=== PATIENT | female | born 2000 | race African-American/Black ===

== ENCOUNTER 2021-02-28 15:06 | Outpatient (CLI) | payer MEDICAID ==
[2021-02-28] MEDS ORDERED: LACTATED RINGERS 1,000 ML IV SCH (15:15)
--- NOTE | 2021-02-28 17:11 | Ultrasound Report ---
ULTRASOUND OBSTETRIC LIMITED INDICATION / CLINICAL INFORMATION: Evaluate well-being. Pelvic pain. COMPARISON: None available. FINDINGS: AMNIOTIC FLUID INDEX (cm) = Not measured. Amniotic fluid volume is subjectively normal. PRESENTATION: Breech. HEART RATE (beats per minute): 145 ADDITIONAL FINDINGS: The placenta is located anteriorly and is unremarkable as visualized. The cervic al length measures 3.4 cm. IMPRESSION: Single live intrauterine as above without acute abnormalities. Signer Name: Edgard Springer MD Signed: 02/28/2021 5:07 PM Workstation Name: [id number]
[2021-02-28 17:36] VITALS: BP 91/51
[2021-02-28] MEDS ORDERED: ACETAMINOPHEN 325 MG TAB PO ONE (17:56)
== END 2021-02-28 18:15 | disposition home or self-care (01) ==
LOC: TRG 15:06 → APU 15:07 → TRG 18:15
PROVIDERS: ATTEND Obstetrics & Gynecology
DX: O21.2 Late vomiting of pregnancy (principal); O26.892 Other specified pregnancy related conditions, second trimester; R10.2 Pelvic and perineal pain; O47.02 False labor before 37 completed weeks of gestation, second trimester; Z3A.23 23 weeks gestation of pregnancy
CPT/HCPCS: 59025; 76815; 76817; 96360; 96361; J7120

== ENCOUNTER 2021-05-19 09:47 | Outpatient (CLI) | payer MEDICAID ==
[2021-05-19 12:09] VITALS: BP 121/79
[2021-05-19] MEDS ORDERED: LACTATED RINGERS 1,000 ML IV ONE (12:30)
[2021-05-19 12:41] LABS: Bacteria,Urine 1+ /HPF (Negative); Bilirubin,Urine NEG (Negative); Blood,Urine NEG (Negative); Color,Urine Yellow (Yellow); Mucus,Urine FEW /HPF; Protein,Urine <15 mg/dL mg/dL (Negative); Urobilinogen,Urine < 2.0 mg/dL (<2.0)
[2021-05-19] MEDS ORDERED: ONDANSETRON 4 MG/2 ML INJ IV PRN (13:30)
[2021-05-19] MEDS ORDERED: FAMOTIDINE 20 MG/2 ML INJ IV SCH (13:30)
[2021-05-19 14:29] LABS: Hematocrit 36.6 % (30.3-42.9); Hemoglobin 12.8 gm/dl (10.1-14.3); Mean Corpuscular HGB Conc 35 % (30-34); Mean Corpuscular Volume 88 fl (79-97); Platelet Count 247 K/mm3 (140-440); Red Blood Count 4.14 M/mm3 (3.65-5.03); Red Cell Distribution Width 13.1 % (13.2-15.2)
[2021-05-19 14:43] LABS: Alanine Aminotransferase 20 units/L (7-56); Albumin 3.5 g/dL (3.9-5); Blood Urea Nitrogen 4 mg/dL (7-17); Calcium 9.1 mg/dL (8.4-10.2); Hemolysis Index 58
[2021-05-19 14:45] LABS: BUN/Creatinine Ratio 13
[2021-05-19 14:48] LABS: Basophils % (Auto) 0.4 % (0.0-1.8); Eosinophils # (Auto) 0.1 K/mm3 (0.0-0.4); Eosinophils % (Auto) 0.7 % (0.0-4.3); Lymphocytes # (Auto) 1.6 K/mm3 (1.2-5.4); Lymphocytes % (Auto) 19.3 % (13.4-35.0); Monocytes # (Auto) 0.7 K/mm3 (0.0-0.8); Monocytes % (Auto) 8.3 % (0.0-7.3)
[2021-05-19] MEDS ORDERED: cefTRIAXone/NS 1 GM/50 ML 1 GM/50 ML BAG IV ONE (17:00)
== END 2021-05-19 17:09 | disposition home or self-care (01) ==
LOC: TRG 09:47 → APU 09:49 → TRG 09:49 → APU 10:15 → TRG 17:09
DX: O21.2 Late vomiting of pregnancy (principal); Z3A.35 35 weeks gestation of pregnancy
CPT/HCPCS: 36415; 59025; 80053; 81001; 82150; 83615; 83690; 85007; 85025; 87086; 96361; 96365; 96366; 96368; J2405; J7120; 96360

== ENCOUNTER 2021-06-09 07:40 | Inpatient (IN) | payer MEDICAID ==
[2021-06-09] MEDS ORDERED: OXYTOCIN DRIP 30 UNITS/500 ML BAG IV SCH ×2 (09:00)
[2021-06-09] MEDS ORDERED: ePHEDrine SULFATE 50 MG/1 ML INJ IV PRN ×2 (09:30→12:05)
[2021-06-09] MEDS ORDERED: DINOPROSTONE 10 MG VAG SUPP VG SCH (09:30)
[2021-06-09] MEDS ORDERED: LIDOCAINE (2%) 20 MG/1 ML VIAL 20 ML MDV INFILTRATI SCH (09:30)
[2021-06-09] MEDS ORDERED: CARBOPROST TROMETHAMINE 250 MCG/1 ML INJ IM PRN (09:30)
[2021-06-09] MEDS ORDERED: BUTORPHANOL 2 MG/1 ML INJ IV PRN ×2 (09:30)
[2021-06-09] MEDS ORDERED: fentaNYL 100 MCG/2 ML INJ IV PRN (09:30)
[2021-06-09] MEDS ORDERED: OXYTOCIN 10 UNIT/1 ML INJ IM PRN (09:30)
[2021-06-09] MEDS ORDERED: NalbUPHINE 10 MG/1 ML INJ IV PRN (09:30)
[2021-06-09] MEDS ORDERED: LOPERAMIDE 2 MG CAP PO PRN (09:30)
[2021-06-09] MEDS ORDERED: ACETAMINOPHEN 325 MG TAB PO PRN (09:30)
[2021-06-09] MEDS ORDERED: METHYLERGONOVINE MALEATE 0.2 MG/ML VIAL IM PRN (09:30)
[2021-06-09] MEDS ORDERED: ONDANSETRON 4 MG/2 ML INJ IV PRN (10:00)
[2021-06-09] MEDS ORDERED: TERBUTALINE 1 MG/1 ML INJ SUB-Q PRN (10:00)
[2021-06-09] MEDS ORDERED: miSOPROStol 200 MCG TAB PR PRN (10:00)
[2021-06-09] MEDS ORDERED: MINERAL OIL 30 ML ORAL LIQD PO PRN (10:00)
[2021-06-09 10:15] LABS: Hematocrit 37.4 % (30.3-42.9); Hemoglobin 12.8 gm/dl (10.1-14.3); Mean Corpuscular HGB Conc 34 % (30-34); Mean Corpuscular Volume 89 fl (79-97); Platelet Count 226 K/mm3 (140-440); Red Blood Count 4.23 M/mm3 (3.65-5.03); Red Cell Distribution Width 13.8 % (13.2-15.2)
[2021-06-09] MEDS: LACTATED RINGERS 1,000 ML IV SCH ×2 (10:44→18:59)
[2021-06-09] MEDS ORDERED: NALOXONE 2 MG/2 ML INJ IV PRN (12:05)
--- NOTE | 2021-06-09 12:06 | Anesthesia Day of Surgery ---
Anesthesia Day of Surgery - Day of Surgery Patient Examined: Yes Patient H&P Reviewed: Yes
--- NOTE | 2021-06-09 12:07 | Anesthesia Consultation ---
Anesthesia Consult and Med Hx Date of service: 06/09/21 - Airway Anesthetic Teeth Evaluation: Good ROM Head & Neck: Adequate Mental/Hyoid Distance: Adequate Mallampati Class: Class II Intubation Access Assessment: Good - Pre-Operative Health Status ASA Pre-Surgery Classification: ASA2 Proposed Anesthetic Plan: Epidural (GA if needed) - Pulmonary Hx Asthma: No - Cardiovascular System Hx Hypertension: No - Central Nervous System Hx Seizures: No Hx Psychiatric Problems: No - Endocrine Hx Renal Disease: No Hx Liver Disease: Yes (Hep B 2019) Hx Hypothyroidism: No Hx Hyperthyroidism: No - Hematic Hx Anemia: No Hx Sickle Cell Disease: No - Other Systems Hx Alcohol Use: No
--- NOTE | 2021-06-09 12:41 | History and Physical Report ---
History of Present Illness Date of examination: 06/09/21 Date of admission: 06/09/21 08:00 Chief complaint: Contractions History of present illness: 20 year old female complains of contractions. Denies LOF or VB. Patient received care at [facility] and records are available. LMP 07/21/2020. EDC 06/21/2021. significant for the following: gestational diabetes (managed on Glyburide 2.5 mg po BID); positive hepatitis B surface antigen (patient has known history of hepatitis B prior to )--patient had ID referral. labs are as follows: O+, antibody screen negative, rubella immune, hepatitis B surface antigen positive, RPR nonreactive, HIV negative, gonorrhea negative, chlamydia negative, trichomonas negative, hemoglobin electrophoresis AA, varicella immune, HSV 2 negative, NIPS low risk, OSB negative, elevated 1 hour sugar test and abnormal 3 hour OGTT, GBS negative. 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 denies: chlamydia, gonorrhea, hepatitis C, herpes, HIV, syphilis, trichomonas Family/Genetic History: none Social history: lives with family, full code. denies: smoking, alcohol abuse, prescription drug abuse, IV drug use - Obstetrical History Expected Date of Delivery: 06/21/21 Actual Gestation: 38 Week(s) 2 Day(s) : 1 Para: 0 Hx # Term Pregnancies: 0 Number of Pregnancies: 0 Spontaneous Abortions: 0 Induced : 0 Number of Living Children: 0 Medications and Allergies Allergies Allergy/AdvReac Type Severity Reaction Status Date / Time No Known Allergies Allergy Verified 02/28/21 15:13 Active Meds: Active Medications Acetaminophen (Acetaminophen 325 Mg Tab) 650 mg PO Q4H PRN PRN Reason: Pain, Mild (1-3) Butorphanol Tartrate (Butorphanol 2 Mg/1 Ml Inj) 1 mg IV Q2H PRN PRN Reason: Pain, Moderate(4-6) LABOR PAIN Butorphanol Tartrate (Butorphanol 2 Mg/1 Ml Inj) 2 mg IV Q2H PRN PRN Reason: Pain , Severe (7-10) Carboprost Tromethamine (Carboprost Tromethamine 250 Mcg/1 Ml Inj) 250 mcg IM ONCE PRN PRN Reason: Uterine Bleeding Dinoprostone (Dinoprostone 10 Mg Vag Supp) 10 mg VG ONCE CECILIA Stop: 06/10/21 09:29 Ephedrine Sulfate (Ephedrine Sulfate 50 Mg/1 Ml Inj) 10 mg IV Q2M PRN PRN Reason: Hypotension Fentanyl (Fentanyl 100 Mcg/2 Ml Inj) 100 mcg IV Q2H PRN PRN Reason: Pain,Severe (7-10) LABOR PAIN Oxytocin/Sodium Chloride (Pitocin/Ns 30 Unit/500ml) 30 units in 500 mls @ 2 mls/hr IV TITR CECILIA; Protocol Last Admin: 06/09/21 10:43 Dose: 2 mls/hr, 2 mls/hr Documented by: Lactated Ringer's (Lactated Ringers) 1,000 mls @ 125 mls/hr IV DIRECT CECILIA Last Admin: 06/09/21 10:44 Dose: 125 mls/hr Documented by: Oxytocin/Sodium Chloride (Pitocin/Ns 30 Unit/500ml) 30 units in 500 mls @ 40 mls/hr IV TITR CECILIA; Protocol Fentanyl/Bupivacaine/Sodium Chlor (Fentanyl-Bupiv 2 Mcg/Ml-0.125%) 200 mcg in 100 mls @ 12 mls/hr EPIDURAL TITR CECILIA; Protocol Lidocaine (Lidocaine (2%) 20 Mg/1 Ml Vial 20 Ml Mdv) 20 ml INFILTRATI ONCE CECILIA Stop: 06/10/21 09:29 Loperamide HCl (Loperamide 2 Mg Cap) 2 mg PO ONCE PRN PRN Reason: give with Hemabate Methylergonovine Maleate (Methylergonovine Maleate 0.2 Mg/Ml Vial) 0.2 mg IM ONCE PRN PRN Reason: Uterine Bleeding Mineral Oil (Mineral Oil 30 Ml Oral Liqd) 30 ml PO QHS PRN PRN Reason: Constipation Misoprostol (Misoprostol 200 Mcg Tab) 800 mcg RI ONCE PRN PRN Reason: Uterine Bleeding Nalbuphine HCl (Nalbuphine 10 Mg/1 Ml Inj) 10 mg IV Q2H PRN PRN Reason: Pain, Moderate (4-6) Naloxone HCl (Naloxone 2 Mg/2 Ml Inj) 0.2 mg IV Q5M PRN PRN Reason: Respiratory sedation Ondansetron HCl (Ondansetron 4 Mg/2 Ml Inj) 4 mg IV Q8H PRN PRN Reason: Nausea And Vomiting Oxytocin (Oxytocin 10 Unit/1 Ml Inj) 10 unit IM ONCE PRN PRN Reason: Uterine Bleeding Terbutaline Sulfate (Terbutaline 1 Mg/1 Ml Inj) 0.25 mg SUB-Q ONCE PRN PRN Reason: Hyperstimulation/Hypertonicity Review of Systems All systems: negative (contractions) - Vital Signs Vital signs: Vital Signs Pulse BP 107 H 119/71 06/09/21 08:32 06/09/21 08:32 Temp Pulse Resp BP Pulse Ox 98.0 F 67 20 134/76 97 06/09/21 08:33 06/09/21 12:31 06/09/21 08:33 06/09/21 12:18 06/09/21 12:31 - Physical Exam Abdomen: Positive: normal appearance, soft. Negative: distention, tenderness, guarding, rigidity Genitourinary (Female): Positive: normal external genitalia, normal perenium. Negative: perineal/vulvar lesions Vagina: Positive: normal moisture Uterus: Positive: enlarged. Negative: tender Anus/Rectum: Positive: normal perianal skin Extremities: Negative: tenderness - Obstetrical FHR: category 1 Uterine Contraction Monitor Mode: External Cervical Dilatation: 5.5 Cervical Effacement Percentage: 70 (BBOW) station: -3 Uterine Contraction Pattern: Regular Uterine Contraction Intensity: Moderate Results Result Diagrams: 06/09/21 09:40 All other labs normal. Assessment and Plan A: at 38 weeks, 2 days gestation. Active labor. GBS negative. Gestational diabetes. Hepatitis B surfacen antigen positive. P: Admit. Continuous EFM. Notify peds of hepatitis B surface antigen positive. Augment labor with Pitocin. Blood sugars every 2 hours during labor. Request patient's ID records from [facility].
[2021-06-09] MEDS: fentaNYL-BUPIV 2 MCG/ML-0.125% 200 MCG/100 ML BAG EPIDURAL SCH ×2 (13:00→20:28)
[2021-06-09] MEDS ORDERED: BUPIVACAINE/PF (0.25%) 2.5 MG/ML 10 ML VIAL INFILTRATI ONE (16:45)
--- NOTE | 2021-06-09 16:54 | Event Note ---
Date: 06/09/21 SVE -2.
[2021-06-09 17:18] LABS: Alanine Aminotransferase 23 units/L (7-56); Albumin 3.7 g/dL (3.9-5); Blood Urea Nitrogen 8 mg/dL (7-17); Calcium 9.4 mg/dL (8.4-10.2); Hemolysis Index 17
[2021-06-09 17:25] LABS: BUN/Creatinine Ratio 20
--- NOTE | 2021-06-09 18:24 | Event Note ---
Date: 06/09/21 Pitocin was turned off at 17:00 due to frequent contractions. Contractions spaced. Uterus palpates soft between contractions. Late appearing FHR de celerations noted with moderate FHR variability and normal baseline rate; Dr. Stuart notified at 17:[address] Stuart orders to perform AROM. AROM performed with large amount of clear amniotic fluid noted. SVE now 8.5/95/-1. Patient repositioned and oxygen applied per face mask at 10 LPM.
--- NOTE | 2021-06-09 18:54 | Event Note ---
Date: 06/09/21 At 18:44 asked nurse to give terbutaline 0.25 mg SQ per MD recommendation. Informed Dr. Stuart re: FHR tracing.
--- NOTE | 2021-06-09 21:57 | Event Note ---
Date: 06/09/21 Patient is completely dilated. Spoke with Dr. Stuart; patient is to labor down on 1 milliunit of Pitocin per Dr. Stuart's order.
[2021-06-10] MEDS ORDERED: MAGNESIUM HYDROXIDE (MOM) ORAL LIQD UDC PO PRN (02:14)
[2021-06-10] MEDS ORDERED: PROMETHAZINE 25 MG TAB PO PRN (02:14)
[2021-06-10] MEDS ORDERED: ONDANSETRON 4 MG/2 ML INJ IV PRN (02:14)
[2021-06-10] MEDS ORDERED: ACETAMINOPHEN 325 MG TAB PO PRN (02:14)
[2021-06-10] MEDS ORDERED: LANOLIN/ZINC/DIMETHICONE (LANSINOH) 7 GM TP PRN (02:14)
[2021-06-10] MEDS ORDERED: PROMETHAZINE 25 MG RECT SUPP PR PRN (02:14)
--- NOTE | 2021-06-10 02:32 | Procedure Note ---
OB Delivery Note - Delivery Date of Delivery: 06/10/21 Surgeon: WILL HRENANDEZ Estimated blood loss: other (350 cc) - Vaginal Delivery presentation: vertex Delivery position: OA Intrapartum events: none Delivery induction: none Delivery augmentation: rupture of membranes, pitocin Delivery monitor: external FHT, external uterine Route of delivery: Delivery placenta: spontaneous Delivery cord: 3 umbilical vessels Episiotomy: none Delivery laceration: 1st degree, 2nd degree Delivery repair: vicryl Anesthesia: epidural Delivery comments: Spontaneous vaginal delivery at 00:08 of liveborn female infant weighing 6 lb. 15 oz. over 2nd degree perineal laceration with apgars of 8/9. Epidural anesthesia. was atraumatic. Baby placed skin to skin with mom immediately after delivery, bulb suctioned and dried with towels. Spontaneous cry and respirations. 3 vessel cord double clamped and cut. Spontaneous delivery of intact placenta and membranes at 00:10. Pitocin to IV fluids after delivery of placenta. Cytotec 800 micrograms given rectally due to uterine atony. Fundus firm and midline after massage. 2nd degree perineal laceration and small first degree laceration repaired with 2-0 vicryl. No other lacerations noted. Sponge count correct. Vaginal sweep negative. Mother and baby stable.
[2021-06-10] MEDS: DOCUSATE SODIUM 100 MG CAP PO SCH ×3 (03:00→21:12)
[2021-06-10] MEDS: FERROUS SULFATE 325 MG TAB PO SCH ×3 (03:00→21:12)
[2021-06-10] MEDS: IBUPROFEN 600 MG TAB PO PRN ×3 (05:01→23:11)
[2021-06-10] MEDS: WITCH HAZEL/ GLYCERIN PAD TP PRN ×2 (05:02→19:37)
[2021-06-10] MEDS: HYDROcodone/ACETAMINOPHEN 5-325 MG TAB PO PRN ×2 (09:51→21:12)
[2021-06-10 15:22] LABS: Hematocrit 28.6 % (30.3-42.9); Hemoglobin 9.9 gm/dl (10.1-14.3)
--- NOTE | 2021-06-10 16:15 | Post Anesthesia Evaluation ---
- Post Anesthesia Evaluation Patient Participated: Yes Airway Patent: Yes Stable Respiratory Function: Yes Nausea/Vomiting: No Temp > 96.8F: Yes Pain Manageable: Yes Adequeate Hydration: Yes Anesthesia Complications: No Block Receding Appropriately: Yes Patient on Ventilator: No
[2021-06-11] MEDS: HYDROcodone/ACETAMINOPHEN 5-325 MG TAB PO PRN ×2 (04:07→22:31)
[2021-06-11] MEDS: IBUPROFEN 600 MG TAB PO PRN ×3 (05:48→17:49)
[2021-06-11] MEDS ORDERED: TETANUS,DIPH,PERTUSS(ACELL) VACCINE 0.5 ML SYRINGE IM ONE (06:00)
[2021-06-11] MEDS: FERROUS SULFATE 325 MG TAB PO SCH ×2 (10:27→22:32)
[2021-06-11] MEDS: DOCUSATE SODIUM 100 MG CAP PO SCH ×2 (10:27→22:32)
--- NOTE | 2021-06-11 11:43 | Progress Note ---
Assessment and Plan A: day 1 S/P . Anemia. Gestational diabetes. Hepatitis B positive, known history. P: Supplement with iron. Continue routine care. Anticipate discharge home tomorrow if patient continues to do well. Subjective - Subjective Date of service: 06/11/21 Principal diagnosis: day 1 S/P Patient reports: appetite normal, voiding normally, pain well controlled, flatus, ambulating normally, no dizzy ambulation, no nauseated : doing well Objective - Vital Signs Latest vital signs: Vital Signs Temp Pulse Resp BP BP Pulse Ox 06/11/21 08:24 97.8 F 77 17 117/72 97 06/11/21 06:42 18 06/11/21 05:48 16 06/11/21 05:07 18 06/11/21 04:07 20 06/11/21 00:30 98.6 F 74 16 104/77 06/11/21 00:11 18 06/10/21 23:11 18 06/10/21 22:12 18 06/10/21 21:12 18 06/10/21 19:38 18 06/10/21 15:16 97.8 F 87 17 109/62 98 Intake and Output 06/10/21 06/11/21 06/11/21 23:59 07:59 15:59 Intake Total 600 Balance 600 Intake: Intake, Free Water 600 Other: # Voids Void 1 1 - Exam Abdomen: Present: normal appearance, soft. Absent: distention, tenderness, guarding, rigidity Uterus: Present: normal, firm, fundal height below umbilicus. Absent: bogginess, tenderness Extremities: Absent: tenderness, edema - Labs Labs: Abnormal lab results 06/10/21 Range/Units 14:54 Hgb 9.9 L (10.1-14.3) gm/dl Hct 28.6 L D (30.3-42.9) %
[2021-06-11] MEDS: WITCH HAZEL/ GLYCERIN PAD TP PRN ×2 (17:51→22:32)
[2021-06-12] MEDS: IBUPROFEN 600 MG TAB PO PRN (06:09)
--- NOTE | 2021-06-12 07:01 | Progress Note ---
Assessment and Plan A: day 2 S/P . Anemia. Gestational diabetes. Hepatitis B, known history. P: Discharge patient home today. Discussed with patient discharge instructions and warning signs. Advised patient to continue taking her vitamins and iron supplements at home. Advised patient to avoid IC, lifting, housework. Advised patient to follow up at [facility] in 6 weeks for exam and repeat sugar test. Patient voiced understanding of all instructions. Subjective - Subjective Date of service: 06/12/21 Principal diagnosis: day 2 S/P Patient reports: appetite normal, voiding normally, pain well controlled, flatus, ambulating normally, no dizzy ambulation, no nauseated : doing well Objective - Vital Signs Latest vital signs: Vital Signs Temp Pulse Resp BP Pulse Ox 06/12/21 00:40 97.7 F 71 18 121/67 95 06/11/21 17:08 98.2 F 78 18 114/71 97 06/11/21 08:24 97.8 F 77 17 117/72 97 - Exam Cardiovascular: Present: Regular rate Lungs: Present: Clear to auscultation Abdomen: Present: normal appearance, soft, normal bowel sounds. Absent: distention, tenderness, guarding, rigidity Uterus: Present: normal, firm, fundal height below umbilicus. Absent: bogginess, tenderness Extremities: Present: normal. Absent: tenderness
--- NOTE | 2021-06-12 07:03 | Discharge Summary ---
Providers - Providers Date of Admission: 06/09/21 08:00 Date of discharge: 06/12/21 Attending physician: AUREA REDMAN MD Primary care physician: AUREA REDMAN MD Hospitalization Reason for admission: induction of labor Delivery: Episiotomy: none Laceration: 1st degree, 2nd degree Other procedures: none complications: none Discharge diagnosis: IUP at term delivered [place] baby: female Pertinent studies: Labs Hospital course: Stable hospital course Condition at discharge: Good Disposition: DC-01 TO HOME OR SELFCARE - Discharge Diagnoses (1) Term delivered Status: Acute (2) Anemia Status: Acute Plan - Provider Discharge Summary Activity: routine, no sex for 6 weeks, no heavy lifting 4 weeks, no strenuous exercise Diet: routine Instructions: routine Additional instructions: Continue taking your vitamins and iron supplements at home. Follow up in 6 weeks at [facility]. Call your doctor immediately for: * Fever > 100.5 * Heavy vaginal bleeding ( >1 pad per hour) * Severe persistent headache * Shortness of breath * Reddened, hot, painful area to leg or breast - Follow up plan Follow up: AUREA REDMAN MD [Primary Care Provider] - 6 Weeks
[2021-06-12] MEDS: FERROUS SULFATE 325 MG TAB PO SCH (09:38)
[2021-06-12] MEDS: DOCUSATE SODIUM 100 MG CAP PO SCH (09:38)
[2021-06-12 10:48] VITALS: BP 122/62
== END 2021-06-12 11:32 | disposition home or self-care (01) | DRG 775 ==
LOC: TRG 07:40 → LD 07:41 → TRG 08:00 → LD 08:00 → OB 06-10 02:12
PROVIDERS: ADMIT Obstetrics & Gynecology; ATTEND Obstetrics & Gynecology
PROC: 3E0R3BZ Introduction of Anesthetic Agent into Spinal Canal, Percutaneous Approach (ICD-10-PCS; 2021-06-09)
PROC: 00HU33Z Insertion of Infusion Device into Spinal Canal, Percutaneous Approach (ICD-10-PCS; 2021-06-09)
PROC: 10907ZC Drainage of Amniotic Fluid, Therapeutic from Products of Conception, Via Natural or Artificial Opening (ICD-10-PCS; 2021-06-09)
PROC: 10E0XZZ Delivery of Products of Conception, External Approach (ICD-10-PCS; principal; 2021-06-10)
PROC: 0KQM0ZZ Repair Perineum Muscle, Open Approach (ICD-10-PCS; 2021-06-10)
PROC: 3E0234Z Introduction of Serum, Toxoid and Vaccine into Muscle, Percutaneous Approach (ICD-10-PCS; 2021-06-11)
DX: O24.429 Gestational diabetes mellitus in childbirth, unspecified control (principal); Z3A.38 38 weeks gestation of pregnancy; Z37.0 Single live birth; O99.214 Obesity complicating childbirth; Z20.822 Contact with and (suspected) exposure to COVID-19; Z23 Encounter for immunization; O26.62 Liver and biliary tract disorders in childbirth; B19.10 Unspecified viral hepatitis B without hepatic coma; O76 Abnormality in fetal heart rate and rhythm complicating labor and delivery; O70.1 Second degree perineal laceration during delivery; D64.9 Anemia, unspecified; O90.81 Anemia of the puerperium
CPT/HCPCS: 36415; 80053; 82962; 85014; 85018; 85027; 86850; 86900; 86901; 90471; 90715; G0378; J2590; J3105; J7120; U0003